=== PATIENT | male | born 1980 | race Caucasian/White ===

== ENCOUNTER 2023-08-21 17:44 | Emergency (ER) | payer OTHER, BC, SELFPAY ==
[2023-08-21 17:45] VITALS: BP 139/80; PULSE 70; RESP 16; TEMP 36.6; O2SAT 100
--- NOTE | 2023-08-21 19:13 | ED.GENADULT ---
HPI - General Adult General Chief complaint: Unspecified Stated complaint: needs new OCL splint Time Seen by Provider: 08/21/23 17:48 Source: patient Mode of arrival: ambulatory (on crutches) Limitations: no limitations History of Present Illness HPI narrative: This is a 42 year old male that presents to the ER to get a new splint. Reports he was at [facility] two days ago after a fall at work. Sustained a fracture to his right calcaneal bone. He has a splint in place. Reports it is very uncomfortable on the arch of his foot. He called his orthopedics doctor and they told him to go to any ER to get the splint replaced. Denies fever, or numbness. Related Data Allergies Allergy/AdvReac Type Severity Reaction Status Date / Time No Known Drug Allergies Allergy Mild Other Verified 08/21/23 17:54 Review of Systems Review of Systems: CONSTITUTIONAL: Denies fever MUSCULOSKELETAL: Reports joint pain, and myalgia. NEUROLOGIC: Denies numbness All systems reviewed & are unremarkable except as noted in HPI and below PMFSH Past Medical History Medical History (Updated 08/21/23 @ 19:23 by Marixa Avalos PA-C) No active medical problems Social History Social History (Updated 08/21/23 @ 19:17 by Marixa Avalos PA-C) Substance use: never Exam Narrative: GENERAL: Well-appearing, well-nourished, and in no acute distress. HEAD: Normocephalic, atraumatic. EYES: EOMI. EXTREMITIES: Posterior splint in place on the right foot SKIN: Warm, dry, no rash. NEURO: No focal deficits. Alert and oriented x3. PSYCH: Normal mood and affect Course Course Emergency Course: Patient's splint was replaced with improvement in his discomfort Vital Signs Vital signs: Vital Signs Temperature 97.8 F 08/21/23 17:45 Pulse Rate 70 08/21/23 17:45 Respiratory Rate 16 08/21/23 17:45 Blood Pressure 139/80 08/21/23 17:45 Pulse Oximetry 100 08/21/23 17:45 Temperature 97.8 F 08/21/23 17:45 Pulse Rate 70 08/21/23 17:45 Respiratory Rate 16 08/21/23 17:45 Blood Pressure 139/80 08/21/23 17:45 Pulse Oximetry 100 08/21/23 17:45 Procedures Orthopedic Splinting/Casting Injury #1: Splinting/Casting Date: 08/21/23 Splinting/Casting Time: 19:19 Side: right Lower Extremity Injury Location: foot Lower Extremity Immobilizer: posterior splint Splint: customized in ED OCL: short leg Pre-Procedure Neuro Vascular Exam: normal Post-Procedure Neuro Vascular Exam: normal Additional Comments: After splint removed, moderate edema and bruising about the right foot with a few small fracture blisters. Normal DP pulse. Normal sensation. No calf pain or tenderness Medical Decision Making MDM Narrative Medical decision making narrative: Patient presents to the emergency department to have his splint replaced. [facility] was seen [facility] days ago after a fall. He has sustained a calcaneal fracture. Reports his splint was uncomfortable and digging into the arch of his foot. He called his orthopedics doctor and was prompted to be seen at any ER to have the splint replaced. Patient is neurovascularly intact. His splint was replaced with improvement in his discomfort. Instructed to follow-up with his orthopedics doctor as planned. He was given warnings to return to the ER Vital Signs Vital Signs: Vital Signs Temperature 97.8 F 08/21/23 17:45 Pulse Rate 70 08/21/23 17:45 Respiratory Rate 16 08/21/23 17:45 Blood Pressure 139/80 08/21/23 17:45 Pulse Oximetry 100 08/21/23 17:45 Temperature 97.8 F 08/21/23 17:45 Pulse Rate 70 08/21/23 17:45 Respiratory Rate 16 08/21/23 17:45 Blood Pressure 139/80 08/21/23 17:45 Pulse Oximetry 100 08/21/23 17:45 Critical Care Time Critical Care Time Critical Care Time: No Discharge Plan Discharge Clinical Impression: Aftercare for cast or splint check or change Patient Dispositi
== END 2023-08-21 19:36 | disposition home or self-care (01) ==
PROVIDERS: Emergency Provider Physician Assistant; PCP Nurse Practitioner Family
DX: S92.001D Unspecified fracture of right calcaneus, subsequent encounter for fracture with routine healing (principal); W19.XXXD Unspecified fall, subsequent encounter
CPT/HCPCS: 29515; 99282